=== PATIENT | female | born 1985 | race Caucasian/White ===

== ENCOUNTER 2019-10-01 22:08 | Emergency (ER) | payer MEDICAID ==
[~2019-10-01] VITALS: Ht 157.5 cm; Wt 82.6 kg
[2019-10-01 22:13] VITALS: BP 137/87
--- NOTE | 2019-10-01 22:23 | NUR ---
PT AMBULATED TO BED #9
--- NOTE | 2019-10-01 22:42 | NUR ---
BIB SELF PT C/O HEMATURIA X 1 MONTH, PT REPORTS TO HAVE CLOTTING/RED MUCUS DURING URINATION. NO SPONTANEOUS VAGINAL BLEEDING PRESENT. DENIES ANY PAIN OR CRAMPING. DENIES DIZZINESS/LIGHTHEADEDNESS. PATIENT IS AA0X3. CAP REFILL <3. DENIES SOB/CP. RESP ARE EVEN AND UNLABORED. DENIES SOB/CP. HX: UTERINE CANCER, PT WAS RECEIVING TREATMENTS, LAST RADIATION TX WAS IN JUNE. PTS INSURANCE GOT CANCELLED AND PT WAS UNABLE TO CONTINUE TREATMENT. ALLERGIES: IODINE, CONTRAST
[2019-10-01 22:59] LABS: BASOPHILS % (AUTO) 0.3 % (0.0-2.0); EOSINOPHILS # (AUTO) 0.1 K/uL (0-0.4); HEMATOCRIT 41.5 % (36-48); HEMOGLOBIN 14.2 g/dL (12.0-16.0); LYMPHOCYTES # (AUTO) 1.9 K/uL (2.5-16.5); MEAN CORPUSCULAR HEMOGLOBIN 34 pg (27-31); MEAN CORPUSCULAR HGB CONC 34 g/dL (33-37); MEAN CORPUSCULAR VOLUME 98.3 fL (80-94); MONOCYTES # (AUTO) 0.4 K/uL (0.8-1.0); MONOCYTES % (AUTO) 6.5 % (1.7-9.3); NEUTROPHILS # (AUTO) 3.4 K/uL (1.8-7.7); NEUTROPHILS % (AUTO) 58.2 % (42.2-75.2); PLATELET COUNT (AUTO) 324 K/uL (140-450); RED BLOOD CELL COUNT(AUTO) 4.22 MIL/uL (4.20-5.40); RED CELL DISTRIBUTION WIDTH 13.5 % (11.6-13.7); WHITE BLOOD COUNT (AUTO) 5.9 K/uL (4.8-10.8)
--- NOTE | 2019-10-01 23:05 | NUR ---
PT AMBULATED TO BATHROOM TO PROVIDE URINE SAMPLE.
[2019-10-01 23:08] LABS: BILIRUBIN,URINE NEGATIVE (NEGATIVE); BLOOD, URINE 3+ (NEGATIVE); LEUKOCYTE ESTERASE ,URINE TRACE (NEGATIVE); NITRITE, URINE NEGATIVE (NEGATIVE); UGLUCOSE NEGATIVE (NEGATIVE)
--- NOTE | 2019-10-01 23:10 | NUR ---
Dr. Smith examining patient.
[2019-10-01] MEDS ORDERED: NACL 0.9% 1,000 ML IV ONE (23:20)
[2019-10-01 23:27] LABS: APPEARANCE,URINE HAZY (CLEAR)
[2019-10-01 23:29] LABS: COLOR,URINE YELLOW (YELLOW)
[2019-10-01 23:30] LABS: ANION GAP 13.5 (8-16); CARBON DIOXIDE 29.1 mmol/L (21-32); CREATININE 0.9 mg/dL (0.6-1.3); POTASSIUM 3.6 mmol/L (3.5-5.1)
[2019-10-01 23:31] LABS: ALBUMIN 4.3 g/dL (3.4-5.0); TOTAL BILIRUBIN 0.3 mg/dL (0.0-1.0)
[2019-10-01 23:55] LABS: RBC,URINE TOO NUMEROUS TO COUN /HPF (0-5)
--- NOTE | 2019-10-02 00:43 | NUR ---
PT RETURN FROM CT
--- NOTE | 2019-10-02 01:24 | NUR ---
PT RESTING IN BED. ALL NEEDS MET AT THIS TIME.
--- NOTE | 2019-10-02 01:32 | NUR ---
REPORT RECEIVED FROM LORNA NGUYEN. TRANSFER OF CARE AT THIS TIME.
[2019-10-02 02:35] VITALS: BP 124/71
--- NOTE | 2019-10-02 02:35 | NUR ---
Patient discharged with v/s stable. Written and verbal after care instructions given and explained. Patient alert, oriented and verbalized understanding of instructions. Ambulatory with steady gait. All questions addressed prior to discharge. ID band removed. Patient advised to follow up with PMD. Rx of Ciproflaxacin given. Patient educated on indication of medication including possible reaction and side effects. Opportunity to ask questions provided and answered.
--- NOTE | 2019-10-04 17:43 | NUR ---
PT POSITIVE FOR E COLI, ESBL IN URINE 10/01/2019 RX CIPRO WHICH IS RESISTANT ASKED TO CHANGE TO MACROBID 100MG PO BID DISP 20 PT NOTIFIED AND REQUESTED TO HAVE [facility] CALLED [phone] NUMBER PROVIDED BY PT---
== END 2019-10-02 02:35 | disposition home or self-care (01) ==
LOC: MED 22:08
DX: R31.29 Other microscopic hematuria (principal); N30.91 Cystitis, unspecified with hematuria; Z85.42 Personal history of malignant neoplasm of other parts of uterus; Z88.8 Allergy status to other drugs, medicaments and biological substances
CPT/HCPCS: 36415; 74176; 80053; 81001; 84703; 85025; 85610; 85730; 86886; 86900; 86901; 87086; 87186; 99284; J7030